=== PATIENT | male | born 1940 | race Caucasian/White ===

== ENCOUNTER 2016-07-25 22:59 | Emergency (ER) | payer OTHER ==
[~2016-07-25] VITALS: Ht 170.2 cm; Wt 62.0 kg
[~2016-07-25 22:59] MED LIST: 1-ME1LIQ PO; DONE10TA14 PO; NICO14DI18 TD; NICO21DI24 TD; NICO7DIS2 TD
[2016-07-25 23:43] VITALS: BP 126/68; PULSE 73; RESP 18; TEMP 97.9; O2SAT 97
[2016-07-26 01:15] VITALS: BP 143/80; PULSE 80; RESP 18; O2SAT 98
[2016-07-26 01:22] VITALS: BP 126/68; PULSE 73; RESP 18; TEMP 97.9; O2SAT 97
[2016-07-26 02:30] VITALS: BP 140/77; PULSE 85; RESP 18; O2SAT 99
[2016-07-26 03:21] LABS: BLOOD, URINE SMALL (NEG); GLUCOSE,URINE NEG (NEG); KETONE, URINE NEG (NEG); NITRITE,URINE NEG (NEG)
[2016-07-26 03:22] LABS: URINE COLOR STRAW (YELLW/STRAW)
[2016-07-26 03:25] LABS: BACTERIA, URINE MANY /hpf; COMMENT (UR) CATH-CULTURE IND; CULTURE IF INDICATED CATH CULTURE IND; SQUAMOUS EPITHELIAL CELL URINE 0-5 /hpf (0-5)
[2016-07-26] MEDS ORDERED: PHEN0.4T PO (03:39)
[2016-07-26] MEDS ORDERED: BACT800T5 PO (03:39)
--- NOTE | 2016-07-26 03:40 | PD ---
HPI Chief Complaint: Complaint Time Seen by Provider: 03:30 Travel History International Travel<30 days: No Contact w/Intl Traveler<30days: No Traveled to known affect area: No History of Present Illness HPI 75-year-old male presents to the emergency department with caregiver for urinary retention. Patient has history of metastatic adenocarcinoma of the lung. Patient also has history of dementia. No report of fever. No report of new shortness of breath chest pain abdominal pain flank pain. Patient recently had urinalysis performed but was not started on antibiotic and caregiver does not know the results as of 5 days ago. Estimated pain 10 over 10 in intensity. PFSH Past Medical History Narrative Medical Lung cancer dementia hypertension; no tobacco use at this time; nursing notes reviewed Cancer: Yes (lung ca) Cardiovascular Problems: Yes Diabetes: No Diminished Hearing: No Endocrine: No Genitourinary: Yes (enlarged prostate) Hepatitis: No Hiatal Hernia: No Hypertension: Yes Immune Disorder: No Musculoskeletal: No Neurologic: Yes (dementia) Psychiatric: No Reproductive: No Respiratory: Yes Immunizations Current: Yes Thyroid Disease: No Tetanus Vaccination: > 5 Years Influenza Vaccination: Yes Past Surgical History Abdominal Surgery: Yes (hernia 2011. 2013) AICD: No Cardiac Surgery: No Ear Surgery: No Endocrine Surgery: No Eye Surgery: Yes (mikhail 2000) Genitourinary Surgery: No Gynecologic Surgery: No Joint Replacement: No Oral Surgery: No Pacemaker: No Thoracic Surgery: No Tonsillectomy: Yes (APPROX 60 YEARS AGO) Other Surgery: Yes (OTHROSCOPY IN RIGHT KNEE IN 1987) Social History Alcohol Use: No Tobacco Use: No Substance Use: No Allergies-Medications (Allergen,Severity, Reaction): Coded Allergies: No Known Allergies (Verified , 07/26/16) Reported Meds & Prescriptions Reported Meds & Active Scripts Active Review of Systems Except as stated in HPI: all other systems reviewed are Neg Physical Exam Narrative GENERAL: Pleasant elderly male in no acute distress; urinary catheter in place SKIN: Warm and dry. HEAD: Normocephalic. EYES: No scleral icterus. No injection or drainage. NECK: Supple, trachea midline. No JVD or lymphadenopathy. CARDIOVASCULAR: Regular rate and rhythm without murmurs, gallops, or rubs. RESPIRATORY: Breath sounds equal bilaterally. No accessory muscle use. GASTROINTESTINAL: Abdomen soft, non-tender, nondistended. MUSCULOSKELETAL: No cyanosis, or edema. BACK: Nontender without obvious deformity. No CVA tenderness. Data Data Last Documented VS Vital Signs Date Time Temp Pulse Resp B/P Pulse Ox O2 Delivery O2 Flow Rate FiO2 07/26/16 02:30 85 18 140/77 99 Room Air 07/26/16 01:22 97.9 Orders Urinalysis - C+S If Indicated (07/26/16 03:08) Urine Culture (07/26/16 03:15) Labs Laboratory Tests Test 07/26/16 03:15 Urine Color STRAW Urine Turbidity CLOUDY Urine pH 6.0 Urine Specific [place] 1.004 Urine Protein NEG mg/dL Urine Glucose (UA) NEG mg/dL Urine Ketones NEG mg/dL Urine Occult Blood SMALL Urine Nitrite NEG Urine Bilirubin NEG Urine Leukocyte Esterase LARGE Urine RBC 4-9 /hpf Urine WBC 50-99 /hpf Urine Squamous Epithelial 0-5 /hpf Cells Urine Bacteria MANY /hpf Microscopic Urinalysis Comment CATH-CULTURE IND MDM Medical Decision Making Medical Screen Exam Complete: Yes Emergency Medical Condition: Yes Medical Record Reviewed: Yes Differential Diagnosis Urinary retention, UTI, renal insufficiency Narrative Course 75-year-old male with urinary retention presents with suprapubic pressure and pain; urinary catheter inserted and 1 L urine output with catheter clamped specimen sent for urinalysis Urinalysis is clearly abnormal with positive bacteria and white blood cells; culture indicated; patient given first dose of antibiotic Recommendation is to keep urinary catheter in place as risk for recurrent urinary retention is very high this is discussed in detail with the however the patient does have dementia and she is very concerned of traumatic injury due to the patient not understanding the need to leave the catheter alone and pulling it out causing urethral trauma. insisted removal of the urinary catheter and is encouraged to understand that he may have recurrent retention and well need to return to the emergency department for possible urinary catheter replacement. Catheter removed at this time. Patient administered first dose of antibiotic. Diagnosis Primary Impression: Urinary retention Additional Impression: UTI (urinary tract infection) Referrals: Primary Care Physician call for appointment Patient Instructions: General Instructions Additional Instructions: Administer antibiotic and complete course of antibiotic Administer acetaminophen/Tylenol as needed for fever 100.4F or greater Encourage increase fluid hydration Return to the emergency department for any concerns or change in condition Follow-up with managing/primary care provider Med/Other Pt SpecificInfo: Prescription(s) given Scripts Phenazopyridine (Pyridium)100 Mg [id number] Mg PO Q8H PRN (DYSURIA) #6 TAB Ref 0 Prov:Shereen Brink MD 07/26/16 Sulfamethoxazole-Trimethoprim (Bactrim DS)800-160 Mg Tab1 Tab PO BID #20 TAB Ref 0 Prov:Shereen Brink MD 07/26/16 Disposition: 01 DISCHARGE HOME Condition: Stable Shereen Brink MD Jul 26, 2016 03:40
[2016-07-26] MEDS ORDERED: SULFAMETHOXAZOLE-TRIMETHOPRIM DS 800-160 MG TAB PO ONE (03:45)
[2016-07-27] MEDS ORDERED: AMLO5TAB2 PO (22:38)
[2016-07-27] MEDS ORDERED: DONE10TA7 PO (22:38)
[2016-07-27] MEDS ORDERED: MEMA1TAB2 PO (22:40)
[2016-07-27] MEDS ORDERED: NAME10TA PO (22:40)
[2016-07-27] MEDS ORDERED: ALBU1.25 NEB (22:43)
[2016-07-27] MEDS ORDERED: ADVA115A INH (22:44)
[2016-07-27] MEDS ORDERED: VENTAER INH (22:44)
[2016-08-19] MEDS ORDERED: PROS5TAB PO (12:28)
[2016-08-27] MEDS ORDERED: BETH25 PO (14:19)
[2016-08-28] MEDS ORDERED: TAMS5CAP PO (09:07)
[2016-10-02] MEDS ORDERED: MACR100C2 PO (16:42)
[2016-10-29] MEDS ORDERED: PROS5TAB PO (12:09)
[2016-10-29] MEDS ORDERED: BETH25 PO (12:09)
== END 2016-07-26 04:03 | disposition home or self-care (01) ==
LOC: PHED 22:59
DX: N39.0 Urinary tract infection, site not specified (principal); R33.9 Retention of urine, unspecified; B96.89 Other specified bacterial agents as the cause of diseases classified elsewhere; I10 Essential (primary) hypertension
CPT/HCPCS: 51702; 81001; 87077; 87086; 87186

== ENCOUNTER 2016-07-27 20:55 | Inpatient (IN) | payer OTHER, MEDICARE ==
[~2016-07-27] VITALS: Ht 172.7 cm; Wt 60.6 kg
[~2016-07-27 20:55] MED LIST changes: -1-ME1LIQ PO; +BACT800T5 PO; -DONE10TA14 PO; -NICO14DI18 TD; -NICO21DI24 TD; -NICO7DIS2 TD; +PHEN0.4T PO
[2016-07-27 21:02] VITALS: BP 92/53; PULSE 77; RESP 20; TEMP 97.5; O2SAT 95
[2016-07-27 21:25] VITALS: BP 104/60; PULSE 70; RESP 20; TEMP 97.9; O2SAT 96
[2016-07-27 21:30] VITALS: O2SAT 96
[2016-07-27] MEDS ORDERED: SODIUM CHLOR 0.9% 1000 ML INJ 1,000 ML IV ONE (21:32)
[2016-07-27] MEDS: RESP: ALBUTEROL 2.5 MG/IPRATROPIUM 0.5 MG NEB (SCH) INH ×2 (21:57→21:58)
[2016-07-27 22:06] LABS: AUTOMATED NEUTROPHIL # 6.3 TH/MM3 (1.8-7.7); BASOPHIL % 0.5 % (0.0-2.0); EOSINOPHIL # 0.2 TH/MM3 (0-0.4); EOSINOPHIL % 2.1 % (0.0-4.0); HEMATOCRIT 39.2 % (39.0-51.0); HEMO FLAGS DIFF FINAL; LYMPH % 12.2 % (9.0-44.0); LYMPHOCYTE # 1.2 TH/MM3 (1.0-4.8); MEAN CELL VOLUME 89.2 FL (80.0-100.0); MEAN CORPUSCULAR HEMOGLOBIN 29.3 PG (27.0-34.0); MEAN CORPUSCULAR HGB CONC 32.9 % (32.0-36.0); MONO % 18.1 % (0.0-8.0); NEUT % 67.1 % (16.0-70.0); PLATELET COUNT 333 TH/MM3 (150-450); RED BLOOD COUNT 4.39 MIL/MM3 (4.50-5.90); RED CELL DISTRIBUTION WIDTH 13.4 % (11.6-17.2); WHITE BLOOD COUNT 9.4 TH/MM3 (4.0-11.0)
[2016-07-27 22:13] LABS: CHLORIDE 95 MEQ/L (98-107); POTASSIUM 4.1 MEQ/L (3.5-5.1); SODIUM (NA) 129 MEQ/L (136-145)
[2016-07-27 22:16] LABS: ANION GAP 9 MEQ/L (5-15); BICARBONATE 24.7 MEQ/L (21.0-32.0); BLOOD UREA NITROGEN 20 MG/DL (7-18)
[2016-07-27 22:18] LABS: APTT (PATIENT) 25.7 SEC (24.3-30.1); PROTHROMBIN TIME - PATIENT 10.9 SEC (9.8-11.6)
[2016-07-27 22:19] LABS: ALT (GPT) 24 U/L (12-78); AST (GOT) 15 U/L (15-37); GLOMERULAR FILTRATION RATE 84 ML/MIN (>89)
[2016-07-27 22:21] LABS: INDIRECT BILIRUBIN 0.1 MG/DL (0.0-0.8); TOTAL BILIRUBIN ADULT 0.2 MG/DL (0.2-1.0)
[2016-07-27 22:22] LABS: ALKALINE PHOSPHATASE 75 U/L (45-117)
[2016-07-27 22:30] VITALS: BP 123/63; PULSE 78; RESP 20; O2SAT 95
--- NOTE | 2016-07-27 22:30 | PD ---
HPI Chief Complaint: Respiratory Symptoms Time Seen by Provider: 21:26 Travel History International Travel<30 days: No Contact w/Intl Traveler<30days: No History of Present Illness HPI Patient is a 75 year old male who comes in because he has been feeling "unwell. " Patient has history of dementia and is unable to provide history. His states that he complained of pain to his belly earlier today. She also says that he said he was feeling short of breath and he used albuterol which seemed to have helped. He was here 2 days ago and diagnosed with a urinary tract infection. He has been taking Bactrim and Pyridium since then. His reports that he has been urinating fine until recently today he has said that he is unable to urinate. When you ask him, he says he has no complaints. PFSH Past Medical History Cancer: Yes (lung ca) Cardiovascular Problems: Yes Diabetes: No Diminished Hearing: No Endocrine: No Genitourinary: Yes (enlarged prostate) Hepatitis: No Hiatal Hernia: No Hypertension: Yes Immune Disorder: No Musculoskeletal: No Neurologic: Yes (dementia) Psychiatric: No Reproductive: No Respiratory: Yes Immunizations Current: Yes Thyroid Disease: No Past Surgical History Abdominal Surgery: Yes (hernia 2012. 2013) AICD: No Cardiac Surgery: No Ear Surgery: No Endocrine Surgery: No Eye Surgery: Yes (mikhail 2000) Genitourinary Surgery: No Gynecologic Surgery: No Joint Replacement: No Oral Surgery: No Pacemaker: No Thoracic Surgery: No Tonsillectomy: Yes (APPROX 60 YEARS AGO) Other Surgery: Yes (OTHROSCOPY IN RIGHT KNEE IN 1987) Social History Alcohol Use: No Tobacco Use: No Substance Use: No Allergies-Medications (Allergen,Severity, Reaction): Coded Allergies: No Known Allergies (Verified , 07/27/16) Reported Meds & Prescriptions Reported Meds & Active Scripts Active Pyridium (Phenazopyridine HCl) 100 Mg Tab 100 Mg PO Q8H PRN Bactrim DS (Sulfamethoxazole-Trimethoprim) 800-160 Mg Tab 1 Tab PO BID Reported Ventolin Hfa 18 GM Inh (Albuterol Sulfate) 90 Mcg/Act Aer 2 Puff INH Q4-6H PRN Advair Hfa 12 GM Inh (Fluticasone-Salmeterol 12 GM Inh) 115-21 Mcg/Act Aer 2 Puff INH DAILY Albuterol Neb (Albuterol Sulfate) 1.25 Mg/3 Ml Neb 1.25 Mg NEB Q6HR NEB PRN Namenda (Memantine) 10 Mg Tab 10 Mg PO BID Donepezil 10 Mg Tab 10 Mg PO HS Amlodipine (Amlodipine Besylate) 5 Mg Tab 5 Mg PO DAILY Review of Systems ROS Limitations: Other: (dementia) Physical Exam Narrative GENERAL: Awake and alert, in no acute distress. SKIN: Warm and dry. HEAD: Atraumatic. Normocephalic. EYES: Pupils equal and round. No scleral icterus. ENT: Mucous membranes pink and moist. NECK: Trachea midline. No JVD. CARDIOVASCULAR: Regular rate and rhythm. No murmur appreciated. RESPIRATORY: No accessory muscle use. Wheezing bilaterally. Breath sounds equal bilaterally. GASTROINTESTINAL: Abdomen soft, nondistended. Mild tenderness to suprapubic area. MUSCULOSKELETAL: No obvious deformities. No clubbing. No cyanosis. No edema. NEUROLOGICAL: Awake and alert. No obvious cranial nerve deficits. Motor grossly within normal limits. Normal speech. PSYCHIATRIC: Appropriate mood and affect; insight and judgment normal. Data Data Last Documented VS Vital Signs Date Time Temp Pulse Resp B/P Pulse Ox O2 Delivery O2 Flow Rate FiO2 07/27/16 21:40 20 96 Room Air 07/27/16 21:25 97.9 70 104/60 Orders Electrocardiogram (07/27/16 21:32) Complete Blood Count With Diff (07/27/16 21:32) Prothrombin Time / Inr (Pt) (07/27/16 21:32) Act Partial Throm Time (Ptt) (07/27/16 21:32) Lactic Acid Sepsis Protocol (07/27/16 21:32) Troponin I (07/27/16 21:32) Urinalysis - C+S If Indicated (07/27/16 21:32) Chest, Single Ap (07/27/16 21:32) Blood Glucose (07/27/16 21:32) Ecg Monitoring (07/27/16 21:32) Iv Access Insert/Monitor (07/27/16 21:32) Oximetry (07/27/16 21:32) Oxygen Administration (07/27/16 21:32) Sodium Chlor 0.9% 1000 Ml Inj (Ns 1000 M (07/27/16 21:32) Hepatic Functional Panel (07/27/16 21:32) Basic Metabolic Panel (Bmp) (07/27/16 21:32) Albuterol-Ipratropium Neb (Duoneb Neb) (07/27/16 22:00) Urinary Catheter Insert/Apply (07/27/16 22:01) Urine Culture (07/27/16 21:55) Ceftriaxone Inj (Rocephin Inj) (07/27/16 22:45) Admit Order (Ed Use Only) (07/27/16 ) Ceftriaxone Inj (Rocephin Inj) (07/28/16 23:00) Admit To Inpatient (07/27/16 ) Vital Signs (Adult) Q4H (07/27/16 23:53) Activity Oob With Assistance (07/27/16 23:53) Intake + Output KRUNAL.QSHIFT (07/27/16 23:53) Diet Heart Healthy (07/28/16 Breakfast) Sodium Chlor 0.9% 1000 Ml Inj (Ns 1000 M (07/27/16 23:53) Sodium Chloride 0.9% Flush (Ns Flush) (07/28/16 00:00) Sodium Chloride 0.9% Flush (Ns Flush) (07/28/16 09:00) Ondansetron Inj (Zofran Inj) (07/28/16 00:00) Bisacodyl Supp (Dulcolax Supp) (07/28/16 00:00) Comprehensive Metabolic Panel (07/28/16 06:00) Complete Blood Count With Diff (07/28/16 06:00) Scd Bilateral/Knee High KRUNAL.BID (07/27/16 23:53) Bran Bilateral/Knee High KRUNAL.QSHIFT (07/27/16 23:53) Acetaminophen (Tylenol) (07/28/16 00:00) Acetamin-Hydrocod 325-5 Mg ([place] 5-325 (07/28/16 00:00) Morphine Inj (Morphine Inj) (07/28/16 00:00) Inpatient Certification (07/27/16 ) Albuterol Neb (Albuterol Neb) (07/28/16 00:00) Donepezil (Aricept) (07/28/16 21:00) Memantine (Namenda) (07/28/16 09:00) Phenazopyridine (Pyridium) (07/28/16 00:00) (Nf) Fluticasone-Salmeterol 12 Gm Inh (A (07/28/16 09:00) Labs Laboratory Tests Test 07/27/16 21:55 White Blood Count 9.4 TH/MM3 Red Blood Count 4.39 MIL/MM3 Hemoglobin 12.9 GM/DL Hematocrit 39.2 % Mean Corpuscular Volume 89.2 FL Mean Corpuscular Hemoglobin 29.3 PG Mean Corpuscular Hemoglobin 32.9 % Concent Red Cell Distribution Width 13.4 % Platelet Count 333 TH/MM3 Mean Platelet Volume 6.8 FL Neutrophils (%) (Auto) 67.1 % Lymphocytes (%) (Auto) 12.2 % Monocytes (%) (Auto) 18.1 % Eosinophils (%) (Auto) 2.1 % Basophils (%) (Auto) 0.5 % Neutrophils # (Auto) 6.3 TH/MM3 Lymphocytes # (Auto) 1.2 TH/MM3 Monocytes # (Auto) 1.7 TH/MM3 Eosinophils # (Auto) 0.2 TH/MM3 Basophils # (Auto) 0.0 TH/MM3 CBC Comment DIFF FINAL Differential Comment Prothrombin Time 10.9 SEC Prothromb Time International 1.0 RATIO Ratio Activated Partial 25.7 SEC Thromboplast Time Urine Color ORANGE Urine Turbidity CLEAR Urine pH 5.0 Urine Specific [place] 1.017 Urine Protein 30 mg/dL Urine Glucose (UA) 100 mg/dL Urine Ketones NEG mg/dL Urine Occult Blood LARGE Urine Nitrite POS Urine Bilirubin NEG Urine Leukocyte Esterase TRACE Urine RBC 20-24 /hpf Urine WBC 3-5 /hpf Urine Squamous Epithelial 0-5 /hpf Cells Urine Bacteria RARE /hpf Microscopic Urinalysis Comment CATH-CULTURE IND Sodium Level 129 MEQ/L Potassium Level 4.1 MEQ/L Chloride Level 95 MEQ/L Carbon Dioxide Level 24.7 MEQ/L Anion Gap 9 MEQ/L Blood Urea Nitrogen 20 MG/DL Creatinine 0.88 MG/DL Estimat Glomerular Filtration 84 ML/MIN Rate Random Glucose 109 MG/DL Lactic Acid Level 1.3 mmol/L Calcium Level 8.1 MG/DL Total Bilirubin 0.2 MG/DL Direct Bilirubin 0.1 MG/DL Indirect Bilirubin 0.1 MG/DL Aspartate Amino Transf 15 U/L (AST/SGOT) Alanine Aminotransferase 24 U/L (ALT/SGPT) Alkaline Phosphatase 75 U/L Troponin I LESS THAN 0.02 NG/ML Total Protein 6.8 GM/DL Albumin 3.1 GM/DL MDM Medical Decision Making Medical Screen Exam Complete: Yes Emergency Medical Condition: Yes Medical Record Reviewed: Yes Interpretation(s) ECG shows normal sinus rhythm at 75, no ST elevation or depression, normal intervals. Differential Diagnosis UTI versus pneumonia versus COPD Narrative Course Patient is a 75-year-old male comes in because he is "feeling unwell." Patient has been trying to urinate, but is unable to. Selby catheter inserted with about 300 cc of urine that came out. Urine sent for urinalysis. IV established , labs sent. Labs show a sodium of 129. Urinalysis is positive for UTI. Patient has been taking Bactrim, but it is not working. Patient given IV fluids as well as Rocephin. He will be admitted for failed outpatient therapy. Diagnosis Primary Impression: UTI (urinary tract infection) Qualified Code: N30.00 - Acute cystitis without hematuria Additional Impression: Urinary retention Admitting Information Admitting Physician Requests: Admit Condition: Stable Savanah Go MD Jul 27, 2016 22:30
[2016-07-27 22:32] LABS: BLOOD, URINE LARGE (NEG); GLUCOSE,URINE 100 mg/dL (NEG); KETONE, URINE NEG (NEG)
[2016-07-27 22:36] LABS: NITRITE,URINE POS (NEG); URINE COLOR ORANGE (YELLW/STRAW)
[2016-07-27 22:37] LABS: BACTERIA, URINE RARE /hpf; COMMENT (UR) CATH-CULTURE IND; CULTURE IF INDICATED CATH CULTURE IND; SQUAMOUS EPITHELIAL CELL URINE 0-5 /hpf (0-5)
[2016-07-27] MEDS ORDERED: DONE10TA7 PO (22:38)
[2016-07-27] MEDS ORDERED: AMLO5TAB2 PO (22:38)
[2016-07-27] MEDS ORDERED: MEMA1TAB2 PO (22:40)
[2016-07-27] MEDS ORDERED: NAME10TA PO (22:40)
[2016-07-27] MEDS ORDERED: ALBU1.25 NEB (22:43)
[2016-07-27] MEDS ORDERED: ADVA115A INH (22:44)
[2016-07-27] MEDS ORDERED: VENTAER INH (22:44)
[2016-07-27] MEDS ORDERED: cefTRIAXone INJ 1,000 MG in SODIUM CHLORIDE 0.9% INJ 100 ML IV ONE (22:45)
--- NOTE | 2016-07-27 22:49 | RADHPO ---
EXAM DATE/TIME: 07/27/2016 22:06 [facility] COMPARISON: CHEST SINGLE AP, February 08, 2015, 11:13. CT NEEDLE BIOPSY LUNG, RIGHT, February 07, 2015, 9:11. INDICATIONS : Shortness of breath. MEDICAL HISTORY : Hypertension. SURGICAL HISTORY : None. ENCOUNTER: Initial ACUITY: 1 day PAIN SCORE: 0/10 LOCATION: Bilateral chest FINDINGS: Previous right chest tube has been removed. There is partial atelectasis of the right lung. Left lung unremarkable. Tortuous aorta. No significant effusion on the left. Trace right pleural fluid. CONCLUSION: 1. Removal of right chest tube without significant pneumothorax. Partial atelectasis right upper lobe . Apical pleural thickening on the right with trace right pleural fluid. Hitesh Cool MD on July 27, 2016 at 22:47 Board Certified Radiologist. This report was verified electronically.
[2016-07-27 23:00] VITALS: BP 119/52; PULSE 78; RESP 20; O2SAT 96
[2016-07-27 23:30] VITALS: BP 121/65; PULSE 80; RESP 20; O2SAT 95
[2016-07-28] VITALS (9 sets, daily range): BP systolic 104–146; BP diastolic 51–76; PULSE 69–96; RESP 18–20; TEMP 96.4–98.2; O2SAT 95–96
[2016-07-28] MEDS ORDERED: PHENAZOPYRIDINE HCL 100 MG TAB PO PRN
[2016-07-28] MEDS ORDERED: SODIUM CHLORIDE 0.9% FLUSH 10 ML FLUSH IV FLUSH PRN
[2016-07-28] MEDS ORDERED: ONDANSETRON HCL 4 MG/2 ML VIAL IVP PRN
[2016-07-28] MEDS ORDERED: BISACODYL 10 MG SUPP PR PRN
[2016-07-28] MEDS ORDERED: ACETAMINOPHEN 325 MG TAB PO PRN
[2016-07-28] MEDS: SODIUM CHLOR 0.9% 1000 ML INJ 1,000 ML IV SCH ×3 (00:41→16:10)
[2016-07-28] MEDS: RESP: ALBUTEROL 1.25 MG/3 ML NEB (PRN) NEB ×3 (04:05→14:03)
[2016-07-28] MEDS: guaiFENesin SOLUTION 200 MG/10 ML CUP PO PRN (05:49)
[2016-07-28 05:54] LABS: AUTOMATED NEUTROPHIL # 6.3 TH/MM3 (1.8-7.7); BASOPHIL % 0.5 % (0.0-2.0); EOSINOPHIL # 0.3 TH/MM3 (0-0.4); EOSINOPHIL % 3.3 % (0.0-4.0); HEMATOCRIT 36.6 % (39.0-51.0); HEMO FLAGS DIFF FINAL; LYMPHOCYTE # 0.7 TH/MM3 (1.0-4.8); MEAN CELL VOLUME 89.1 FL (80.0-100.0); MEAN CORPUSCULAR HEMOGLOBIN 29.3 PG (27.0-34.0); MEAN CORPUSCULAR HGB CONC 32.9 % (32.0-36.0); MONO % 17.8 % (0.0-8.0); NEUT % 70.4 % (16.0-70.0); PLATELET COUNT 319 TH/MM3 (150-450); RED BLOOD COUNT 4.11 MIL/MM3 (4.50-5.90); RED CELL DISTRIBUTION WIDTH 13.9 % (11.6-17.2); WHITE BLOOD COUNT 8.9 TH/MM3 (4.0-11.0)
[2016-07-28 05:59] LABS: CHLORIDE 102 MEQ/L (98-107); SODIUM (NA) 135 MEQ/L (136-145)
[2016-07-28 06:03] LABS: ANION GAP 7 MEQ/L (5-15); BICARBONATE 25.8 MEQ/L (21.0-32.0); BLOOD UREA NITROGEN 16 MG/DL (7-18)
[2016-07-28 06:06] LABS: ALT (GPT) 20 U/L (12-78); AST (GOT) 12 U/L (15-37); GLOMERULAR FILTRATION RATE 104 ML/MIN (>89)
[2016-07-28 06:08] LABS: TOTAL BILIRUBIN ADULT 0.3 MG/DL (0.2-1.0)
[2016-07-28 06:09] LABS: ALKALINE PHOSPHATASE 66 U/L (45-117)
[2016-07-28] MEDS: SODIUM CHLORIDE 0.9% FLUSH 10 ML FLUSH IV FLUSH SCH ×2 (08:53→20:01)
[2016-07-28] MEDS ORDERED: [UNRECOGNIZED DRUG - OTHER] INH SCH (09:00)
[2016-07-28] MEDS ORDERED: SALMETEROL INH SCH (09:00)
[2016-07-28] MEDS ORDERED: FLUTICASONE PROPIONATE INH SCH (09:00)
--- NOTE | 2016-07-28 09:40 | HHI.HP ---
HPI Service [facility] Hospitalists Primary Care Physician Marisela Reddy MD Admission Diagnosis UTI, failed outpatient therapy Diagnoses: Chief Complaint: Dysuria Weakness Dementia Travel History International Travel<30 Days: No Contact w/Intl Traveler <30 Da: No Traveled to Known Affected Are: No History of Present Illness This is a 75-year-old male with severe dementia who presented to [facility] ED with complaints of weakness and abdominal pain who was treated in the ED 3 days ago for UTI and urinary retention. Patient is unable to give accurate history and there is no family at the bedside, therefore the history is obtained from review of the medical record. Purportedly, patient began to complain of abdominal pain yesterday with some associated shortness of breath that improved after receiving an albuterol treatment. He also has been more weak in comparison to his baseline. As stated above, patient was seen in the ED 3 days ago, diagnosed with a urinary tract infection and urinary retention. A ordonez was placed and he was prescribed Bactrim and Pyridium. Patient's reports the patient had been urinating without any difficulty until 07/26/16 when he presented in urinary retention. It was recommended the patient keep the Ordonez catheter in at the time of his discharge however due to his dementia the patient's insisted it be removed. He has been unable to void since. Today in the ED, ordonez catheter was replaced. UA was highly suggestive of urinary tract infection with large blood, positive nitrites, trace leukocytes and 20-24 red blood cells. He is afebrile and his white count is within normal limits. He was also noted to have significant hyponatremia with a sodium level of 129. Creatinine function appears normal with a level of 0.88. BUN was slightly elevated at 20. 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, previously on surveillance Past Surgical History Back surgery 3 Hernia surgery 2 Knee arthroscopy Reported Medications Pyridium (Phenazopyridine HCl) 100 Mg Tab 100 Mg PO Q8H PRN Bactrim DS (Sulfamethoxazole-Trimethoprim) 800-160 Mg Tab 1 Tab PO BID Ventolin Hfa 18 GM Inh (Albuterol Sulfate) 90 Mcg/Act Aer 2 Puff INH Q4-6H PRN Advair Hfa 12 GM Inh (Fluticasone-Salmeterol 12 GM Inh) 115-21 Mcg/Act Aer 2 Puff INH DAILY Albuterol Neb (Albuterol Sulfate) 1.25 Mg/3 Ml Neb 1.25 Mg NEB Q6HR NEB PRN Namenda (Memantine) 10 Mg Tab 10 Mg PO BID Donepezil 10 Mg Tab 10 Mg PO HS Amlodipine (Amlodipine Besylate) 5 Mg Tab 5 Mg PO DAILY Allergies: Coded Allergies: No Known Allergies (Verified , 07/27/16) Active Ordered Medications Current Medications Medications (Trade) Dose Ordered Sig/Alisa Route Start Time Stop Time Status Last Admin Ceftriaxone Sodium 1000 mg/ Sodium Chloride 100 ml @ 200 mls/hr Q24H IV 07/28/16 23:00 (NS 1000 ml Inj) 1,000 ml @ 100 mls/hr Q10H IV 07/27/16 23:53 07/28/16 00:41 (NS Flush) 2 ml UNSCH PRN IV FLUSH 07/28/16 00:00 (NS Flush) 2 ml BID IV FLUSH 07/28/16 09:00 (Zofran Inj) 4 mg Q6H PRN IVP 07/28/16 00:00 (Dulcolax Supp) 10 mg DAILY PRN [place] 07/28/16 00:00 (Tylenol) 650 mg Q6H PRN PO 07/28/16 00:00 ([place] 5-325 Mg) 1 tab Q4H PRN PO 07/28/16 00:00 (Morphine Inj) 2 mg Q3H PRN IV 07/28/16 00:00 (Aricept) 10 mg HS PO 07/28/16 21:00 (Namenda) 10 mg BID PO 07/28/16 09:00 (Pyridium) 100 mg Q8H PRN PO 07/28/16 00:00 Patient Own Medication PT OWN MED: ADVAIR HFA O... DAILY INH 07/28/16 09:00 Hold (Robitussin Liq) 200 mg Q4H PRN PO 07/28/16 05:30 07/28/16 05:49 Family History - Dad of [place] in his 60s. - Mother of CHF in her 80s - Sister from a brain tumor in her 40s - Brother had lung cancer in his 70s. Social History - 58 years of smoking 1ppd but quit over a year ago. - Used to drink heavy. Does not drink anymore. Denies any illicit drugs. Physical Exam Vital Signs Vital Signs Date Time Temp Pulse Resp B/P Pulse Ox O2 Delivery O2 Flow Rate FiO2 07/28/16 07:18 98.2 74 18 146/76 96 Room Air 07/28/16 07:18 96 Room Air 07/28/16 07:18 96 Room Air 07/28/16 07:18 96 Room Air 07/28/16 05:50 98.1 69 20 139/68 95 Room Air 07/28/16 03:30 89 20 112/57 95 Room Air 07/28/16 03:00 20 95 Room Air 07/28/16 01:00 97.7 73 18 105/51 96 Room Air 07/28/16 00:00 72 18 105/56 95 Room Air 07/27/16 23:30 80 20 121/65 95 Room Air 07/27/16 23:00 78 20 119/52 96 Room Air 07/27/16 22:30 78 20 123/63 95 Room Air 07/27/16 21:40 20 96 Room Air 07/27/16 21:30 96 Room Air 07/27/16 21:30 96 Room Air 07/27/16 21:25 97.9 70 20 104/60 96 07/27/16 21:02 97.5 77 20 92/53 95 Physical Exam GENERAL: This is a well-nourished, well-developed patient, in no apparent distress. Demented. SKIN: No rashes, ecchymoses or lesions. Warm and dry. HEAD: Atraumatic. Normocephalic. No temporal or scalp tenderness. EYES: Pupils equal round and reactive. Extraocular motions intact. No scleral icterus. No injection or drainage. ENT: Nose without bleeding, purulent drainage or septal hematoma. Throat without erythema, tonsillar hypertrophy or exudate. Uvula midline. Airway patent. NECK: Trachea midline. No lymphadenopathy. Supple, nontender, no meningeal signs. CARDIOVASCULAR: Regular rate and rhythm without murmurs, gallops, or rubs. RESPIRATORY: Clear to auscultation. Breath sounds equal bilaterally. No wheezes , rales, or rhonchi. GASTROINTESTINAL: Abdomen soft, non-tender, nondistended. No hepato-splenomegaly , or palpable masses. No guarding. GENITOURINARY: Ordonez in place with clear yellow urine in the bag. MUSCULOSKELETAL: Extremities without clubbing, cyanosis, or edema. No joint tenderness, effusion, or edema noted. No calf tenderness. Positive for tenderness elicited to palpation over the right anterior lateral thigh. No evidence of infection or inflammation. Skin overlying this intact without any abnormalities. No signs of ecchymosis or hematoma. NEUROLOGICAL: Awake and alert. Patient is demented and is not oriented to person place or time. He is able to move all 4 extremities. No focal neurologic deficits appreciated. Laboratory Laboratory Tests Test 07/27/16 07/28/16 21:55 05:47 White Blood Count 9.4 8.9 Red Blood Count 4.39 4.11 Hemoglobin 12.9 12.0 Hematocrit 39.2 36.6 Mean Corpuscular Volume 89.2 89.1 Mean Corpuscular Hemoglobin 29.3 29.3 Mean Corpuscular Hemoglobin 32.9 32.9 Concent Red Cell Distribution Width 13.4 13.9 Platelet Count 333 319 Mean Platelet Volume 6.8 6.7 Neutrophils (%) (Auto) 67.1 70.4 Lymphocytes (%) (Auto) 12.2 8.0 Monocytes (%) (Auto) 18.1 17.8 Eosinophils (%) (Auto) 2.1 3.3 Basophils (%) (Auto) 0.5 0.5 Neutrophils # (Auto) 6.3 6.3 Lymphocytes # (Auto) 1.2 0.7 Monocytes # (Auto) 1.7 1.6 Eosinophils # (Auto) 0.2 0.3 Basophils # (Auto) 0.0 0.0 CBC Comment DIFF FINAL DIFF FINAL Differential Comment Prothrombin Time 10.9 Prothromb Time International 1.0 Ratio Activated Partial 25.7 Thromboplast Time Urine Color ORANGE Urine Turbidity CLEAR Urine pH 5.0 Urine Specific [place] 1.017 Urine Protein 30 Urine Glucose (UA) 100 Urine Ketones NEG Urine Occult Blood LARGE Urine Nitrite POS Urine Bilirubin NEG Urine Leukocyte Esterase TRACE Urine RBC 20-24 Urine WBC 3-5 Urine Squamous Epithelial 0-5 Cells Urine Bacteria RARE Microscopic Urinalysis Comment CATH-CULTURE IND Sodium Level 129 135 Potassium Level 4.1 4.0 Chloride Level 95 102 Carbon Dioxide Level 24.7 25.8 Anion Gap 9 7 Blood Urea Nitrogen 20 16 Creatinine 0.88 0.73 Estimat Glomerular Filtration 84 104 Rate Random Glucose 109 87 Lactic Acid Level 1.3 Calcium Level 8.1 7.7 Total Bilirubin 0.2 0.3 Direct Bilirubin 0.1 Indirect Bilirubin 0.1 Aspartate Amino Transf 15 12 (AST/SGOT) Alanine Aminotransferase 24 20 (ALT/SGPT) Alkaline Phosphatase 75 66 Troponin I LESS THAN 0.02 Total Protein 6.8 6.2 Albumin 3.1 2.9 Date/Time Procedure Status Source Growth 07/27/16 21:55 Urine Culture Received Urine Catheterized Urine Pending Result Diagram: 07/28/16 0547 07/28/16 0547 Imaging Last 48 hours Impressions Chest X-Ray 07/27/162131 Signed Impressions: Service Date/Time: Wednesday, July 27, 2016 22:06 - CONCLUSION: 1. Removal of right chest tube without significant pneumothorax. Partial atelectasis right upper lobe. Apical pleural thickening on the right with trace right pleural fluid. Hitesh Cool MD Assessment and Plan Assessment and Plan 75-year-old male with severe dementia who presented to [facility] ED with complaints of weakness and abdominal pain who was treated in the ED 2 days ago for urinary tract infection and urinary retention. UTI, failed outpatient treatment - Patient admitted to observation - IV ceftriaxone - IV antiemetics and pain medication prn - Pyridium prn - Follow up on urine culture results Urinary retention - Continue Ordonez - Begin Flomax 0.4 mg daily Hyponatremia - likely due to fluid overload from urinary retention - much improved, near normal value - decrease IVF - am lab to monitor Dementia - resume Aricept - fall precautions COPD - Duonebs prn - resume home bronchodilators - Supplemental oxygen as needed DVT prophylaxis - Heparin sq - SCD/UMER hose Written by Tish Tran PA-C acting as scribe for Dr. Mirza on 07/28/16 at 09:40. All or portions of this note were transcribed by luiz Tran PA-C. I, Dr. Ovidio Mirza personally performed the history, physical exam, and medical decision making; and confirmed the accuracy of the information in the transcribed note. Authenticated by Dr. Ovidio Mirza on 07/28/16 at 15:40. Physician Certification 2 Midnight Certification Type: Admission for Inpatient Services Order for Inpatient Services The services are ordered in accordance with Medicare regulations or non- Medicare payer requirements, as applicable. In the case of services not specified as inpatient-only, they are appropriately provided as inpatient services in accordance with the 2-midnight benchmark. Estimated LOS (days): 2 days is the estimated time the patient will need to remain in the hospital, assuming treatment plan goals are met and no additional complications. Post-Hospital Plan: Not yet determined Tish Tran Jul 28, 2016 09:40 Ovidio Mirza MD Jul 28, 2016 15:40
[2016-07-28] MEDS: MEMANTINE HCL 10 MG TAB PO SCH ×2 (12:04→20:03)
[2016-07-28] MEDS: TAMSULOSIN HCL 0.4 MG CAP PO SCH (12:04)
[2016-07-28] MEDS: ACETAMINOPHEN/HYDROcodone 325 MG/5 MG TAB PO PRN (12:06)
[2016-07-28] MEDS: MORPHINE SULFATE 4 MG/ML INJ IV PRN ×2 (13:25→20:00)
--- NOTE | 2016-07-28 14:51 | EKG ---
Date Performed: 07/27/2016 Time Performed: 21:44:08 PTAGE: 75 years EKG: Sinus rhythm Normal ECG NO PREVIOUS TRACING DOCTOR: Nato Main Interpretating Date/Time 07/28/2016 14:47:36
[2016-07-28] MEDS: DONEPEZIL HCL 5 MG TAB PO SCH (20:03)
[2016-07-28] MEDS: cefTRIAXone INJ 1,000 MG in SODIUM CHLORIDE 0.9% INJ 100 ML IV SCH (23:34)
[2016-07-29] VITALS: BP 100/64; PULSE 70; RESP 18; TEMP 96; O2SAT 96
[2016-07-29] MEDS: guaiFENesin SOLUTION 200 MG/10 ML CUP PO PRN ×4 (05:10→23:58)
[2016-07-29 08:00] VITALS: BP 122/71; PULSE 78; RESP 20; TEMP 98.3; O2SAT 93
--- NOTE | 2016-07-29 08:35 | MB ---
cc: SHERRIE DAO DATE OF CONSULTATION: 07/29/2016 HISTORY OF PRESENT ILLNESS Mr. Garcia is a 75-year-old male with history of dementia, who has a history of urinary retention. He was seen earlier in the ER last week and a Selby catheter needed to be placed due to urinary retention and was treated for urinary tract infection. Apparently at some point the catheter was removed and he was unable to urinate and was re-admitted last night. Furthermore, the patient had removed his Selby on his own. At the bedside this morning he was uncomfortable and his bladder was distended. A Selby catheter was placed by myself and over a liter of urine has drained out. It appears clear at present and his creatinine on admission was 0.88. Due to the fact that the patient has dementia, I am unable to get a full history and physical from him and this will be taken primarily from the chart. PAST MEDICAL HISTORY His medical problems include: 1. Dementia. 2. Hypertension. 3. COPD. 4. Right lung cancer. PAST SURGICAL HISTORY Past surgical history is notable for: 1. Knee surgery. 2. Hernia surgery. 3. Back surgery. MEDICATION For medications, please refer to the chart. ALLERGIES NO KNOWN DRUG ALLERGIES. FAMILY HISTORY Family history is notable for heart disease. SOCIAL HISTORY Noted for smoking and drinking. REVIEW OF SYSTEMS Unable to obtain. PHYSICAL EXAMINATION VITAL SIGNS: Temperature is 96, heart rate 70, respiratory rate 18, 100/64. GENERAL: He is well-developed, well-nourished 75-year-old male, not oriented to place. HEENT/NECK: Normocephalic, atraumatic. Pupils equal, round, reactive to light. Extraocular movements intact. Neck is supple. Nose: No bleeding is noted. Trachea midline. No JVD. HEART: Rate is regular rate and rhythm. LUNGS: Clear bilaterally. ABDOMEN: Abdomen is distended over the suprapubic region with some tenderness. : Uncircumcised phallus. Testes are descended. EXTREMITIES: Show no cyanosis, clubbing or edema. Patient is currently in restraints. Selby catheter placed at the bedside without difficulty and over 1000 ccs of clear urine were drained. 20 ccs of sterile water was placed in the Selby catheter. LABORATORY FINDINGS White count 8.9, hemoglobin 12.0, hematocrit 36.6, platelet 319, sodium 135, potassium 4.0, chloride 102, CO2 25.8, BUN 16, creatinine 0.73, glucose of 87. Urinalysis shows 3-5 white cells, 20-24 red cells. ASSESSMENT This is a 75-year-old male with urinary retention. Will continue Flomax but will increase the dose from 0.8 mg once a day to twice a day. Will start Urecholine 25 mg p.o. t.i.d. Will need to give a void trial in the future. If unable to avoid may need a TURP. Thank you for the consult and allowing me to participate in the care of this patient. Sherrie TSANG /8:06 AM /8:21 AM
[2016-07-29] MEDS: SODIUM CHLORIDE 0.9% FLUSH 10 ML FLUSH IV FLUSH SCH ×2 (09:00→20:20)
[2016-07-29] MEDS: RESP: ALBUTEROL 1.25 MG/3 ML NEB (PRN) NEB (09:40)
[2016-07-29] MEDS: TAMSULOSIN HCL 0.4 MG CAP PO SCH ×2 (09:40→21:38)
[2016-07-29] MEDS: MEMANTINE HCL 10 MG TAB PO SCH ×2 (09:40→21:38)
--- NOTE | 2016-07-29 11:16 | HHI.PR ---
Subjective Remarks Follow-up on patient with severe dementia, urinary retention and UTI. Discussed with nursing staff this morning events overnight. Patient became extremely confused and pulled out his Selby catheter. Urology consulted by glue bone drier. Patient placed in restraints. Currently, the patient is calm and pleasantly confused. His is at the bedside. Selby catheter has been replaced by urology. Patient's is requesting a bedside sitter. She states that he is much more confused than his normal baseline. Objective Vitals Vital Signs Date Time Temp Pulse Resp B/P Pulse Ox O2 Delivery O2 Flow Rate FiO2 07/29/16 08:00 98.3 78 20 122/71 93 07/29/16 00:00 96.0 70 18 100/64 96 07/28/16 20:00 96.4 87 18 104/71 96 07/28/16 16:00 98.0 90 18 136/68 95 07/28/16 16:00 98.0 90 18 136/68 95 07/28/16 12:00 98.1 90 18 140/68 95 I/O 07/28/16 07/28/16 07/28/16 07/29/16 07/29/16 07/29/16 07:00 15:00 23:00 07:00 15:00 23:00 Intake Total 1500 ml 939 ml 1167 ml 643 ml Output Total 2175 ml 1500 ml 1201 ml Balance -675 ml -561 ml -34 ml 643 ml Intake Oral 400 ml 220 ml 720 ml 242 ml IV Total 1100 ml 719 ml 447 ml 401 ml Output Urine Total 2175 ml 1500 ml 1200 ml Stool Total 1 ml # Voids 0 4 # Bowel Movements 2 3 Result Diagram: 07/28/16 0547 07/28/16 0547 Objective Remarks GENERAL: This is a well-nourished, well-developed patient, in no apparent distress. Lying in hospital in restraints. at bedside. SKIN: Warm and dry. HEAD: Atraumatic. Normocephalic. CARDIOVASCULAR: Regular rate and rhythm without murmurs, gallops, or rubs. RESPIRATORY: Clear to auscultation. Breath sounds equal bilaterally. No wheezes , rales, or rhonchi. GASTROINTESTINAL: Abdomen soft, non-tender, nondistended. No hepato-splenomegaly , or palpable masses. No guarding. GENITOURINARY: Selby in place with clear yellow urine in the bag. MUSCULOSKELETAL: Extremities without clubbing, cyanosis, or edema. No joint tenderness, effusion, or edema noted. No calf tenderness. Positive for tenderness elicited to palpation over the right anterior lateral thigh. No evidence of infection or inflammation. Skin overlying this intact without any abnormalities. No signs of ecchymosis or hematoma. NEUROLOGICAL: Awake and alert. Patient has dementia and is not oriented to person place or time. He is able to move all 4 extremities. No focal neurologic deficits appreciated. Medications and IVs Current Medications Medications (Trade) Dose Ordered Sig/Alisa Route Start Time Stop Time Status Last Admin Ceftriaxone Sodium 1000 mg/ Sodium Chloride 100 ml @ 200 mls/hr Q24H IV 07/28/16 23:00 07/28/16 23:34 (NS 1000 ml Inj) 1,000 ml @ 42 mls/hr [id number] IV 07/27/16 23:53 07/28/16 16:10 (NS Flush) 2 ml UNSCH PRN IV FLUSH 07/28/16 00:00 (NS Flush) 2 ml BID IV FLUSH 07/28/16 09:00 07/28/16 20:01 (Zofran Inj) 4 mg Q6H PRN IVP 07/28/16 00:00 (Dulcolax Supp) [address] 07/28/16 00:00 (Tylenol) 650 mg Q6H PRN PO 07/28/16 00:00 ([place] 5-325 Mg) 1 tab Q4H PRN PO 07/28/16 00:00 07/28/16 12:06 (Morphine Inj) 2 mg Q3H PRN IV 07/28/16 00:00 07/28/16 20:00 (Aricept) 10 mg HS PO 07/28/16 21:00 07/28/16 20:03 (Namenda) 10 mg BID PO 07/28/16 09:00 07/29/16 09:40 (Pyridium) 100 mg Q8H PRN PO 07/28/16 00:00 Patient Own Medication PT OWN MED: ADVAIR HFA O... DAILY INH 07/28/16 09:00 Hold (Robitussin Liq) 200 mg Q4H PRN PO 07/28/16 05:30 07/29/16 12:30 (Flomax) 0.4 mg DAILY PO 07/28/16 11:00 07/29/16 09:40 Urinary Catheter: Yes Selby insert reason: Obstruction/Retention Date of Insertion: Jul 29, 2016 A/P Assessment and Plan 75-year-old male with severe dementia who presented to [facility] ED with complaints of weakness and abdominal pain who was treated in the ED 2 days ago for urinary tract infection and urinary retention. UTI, failed outpatient treatment - UCX shows no growth in 48hrs - continue IV Rocephin due to UA highly suggestive of UTI and suspected to be contributing to his worsening dementia Urinary retention - events of last night noted, patient with traumatic Selby removal. Urology consulted and Selby replaced. Urology plans to increase dose of Flomax and began Urecholine 25mg TID. - Continue Selby Hyponatremia - likely due to fluid overload from urinary retention - much improved, near normal value - am lab to monitor Dementia with increased confusion secondary to hospitalization and UTI - continue Aricept - Bedside sitter - fall precautions COPD - Duonebs prn - resume home bronchodilators - Supplemental oxygen as needed DVT prophylaxis - Heparin sq - SCD/UMER hose Written by Tish Tran PA-C acting as scribe for Dr. Mirza on 07/29/16 at 11:00. All or portions of this note were transcribed by scribe Tish Tran PA-C. I, Dr. Ovidio Mirza personally performed the history, physical exam, and medical decision making; and confirmed the accuracy of the information in the transcribed note. Authenticated by Dr. Ovidio Mirza on 07/30/16 at 07:46. Tish Tran Jul 29, 2016 11:16 Ovidio Mirza MD Jul 30, 2016 07:47
[2016-07-29 12:00] VITALS: BP_SYST 115; BP_SYST 124; BP_DIAS 82; BP_DIAS 88; PULSE 72; PULSE 88; RESP 16; RESP 20; TEMP 97.6; TEMP 98.1; O2SAT 95; O2SAT 96
[2016-07-29 15:50] VITALS: BP 116/70; PULSE 77; RESP 20; TEMP 97; O2SAT 95
[2016-07-29] MEDS: ACETAMINOPHEN/HYDROcodone 325 MG/5 MG TAB PO PRN ×2 (17:42→23:58)
[2016-07-29] MEDS: BETHANECHOL CHL 25 MG TAB PO SCH ×2 (17:42→21:38)
[2016-07-29 20:00] VITALS: BP 117/68; PULSE 68; RESP 18; TEMP 96.6; O2SAT 96
[2016-07-29] MEDS: DONEPEZIL HCL 5 MG TAB PO SCH (21:38)
[2016-07-29] MEDS: cefTRIAXone INJ 1,000 MG in SODIUM CHLORIDE 0.9% INJ 100 ML IV SCH (23:07)
[2016-07-30] VITALS: BP 120/75; PULSE 70; RESP 18; TEMP 96.9; O2SAT 96
[2016-07-30] MEDS: SODIUM CHLOR 0.9% 1000 ML INJ 1,000 ML IV SCH (02:32)
[2016-07-30 04:00] VITALS: BP 121/73; PULSE 75; RESP 18; TEMP 96.3; O2SAT 96
[2016-07-30] MEDS: BETHANECHOL CHL 25 MG TAB PO SCH ×2 (06:28→12:13)
[2016-07-30 06:30] LABS: POTASSIUM 3.7 MEQ/L (3.5-5.1)
[2016-07-30 06:34] LABS: BICARBONATE 26.6 MEQ/L (21.0-32.0)
[2016-07-30] MEDS: SODIUM CHLORIDE 0.9% FLUSH 10 ML FLUSH IV FLUSH SCH (08:09)
[2016-07-30] MEDS: MEMANTINE HCL 10 MG TAB PO SCH (08:09)
[2016-07-30] MEDS: TAMSULOSIN HCL 0.4 MG CAP PO SCH (08:09)
--- NOTE | 2016-07-30 09:13 | HHI.PR ---
Subjective Patient symptoms today Pt seen and examined. No events. Selby in and urine clear. Objective Vital Signs Vital Signs Date Time Temp Pulse Resp B/P Pulse Ox O2 Delivery O2 Flow Rate FiO2 07/30/16 04:00 96.3 75 18 121/73 96 07/30/16 00:58 18 07/30/16 00:00 96.9 70 18 120/75 96 07/29/16 20:00 96.6 68 18 117/68 96 07/29/16 15:50 97.0 77 20 116/70 95 07/29/16 12:00 98.1 88 20 124/88 95 Intake & Output 07/30/16 07/30/16 07:00 19:00 Intake Total 660 ml Output Total 1200 ml Balance -540 ml Intake Oral 660 ml Output Urine Total 1200 ml # Bowel Movements 1 Result Diagram: 07/28/16 0547 07/30/16 0530 Objective Remarks Abd:soft,nt,nd Selby with clear urine Medications and IVs Current Medications Medications (Trade) Dose Ordered Sig/Alisa Route Start Time Stop Time Status Last Admin Ceftriaxone Sodium 1000 mg/ Sodium Chloride 100 ml @ 200 mls/hr Q24H IV 07/28/16 23:00 07/29/16 23:07 (NS 1000 ml Inj) 1,000 ml @ 42 mls/hr [id number] IV 07/27/16 23:53 07/30/16 02:32 (NS Flush) 2 ml UNSCH PRN IV FLUSH 07/28/16 00:00 (NS Flush) 2 ml BID IV FLUSH 07/28/16 09:00 07/28/16 20:01 (Zofran Inj) 4 mg Q6H PRN IVP 07/28/16 00:00 (Dulcolax Supp) 10 mg DAILY PRN [place] 07/28/16 00:00 (Tylenol) 650 mg Q6H PRN PO 07/28/16 00:00 ([place] 5-325 Mg) 1 tab Q4H PRN PO 07/28/16 00:00 07/29/16 23:58 (Morphine Inj) 2 mg Q3H PRN IV 07/28/16 00:00 07/28/16 20:00 (Aricept) 10 mg HS PO 07/28/16 21:00 07/29/16 21:38 (Namenda) 10 mg BID PO 07/28/16 09:00 07/30/16 08:09 (Pyridium) 100 mg Q8H PRN PO 07/28/16 00:00 Patient Own Medication PT OWN MED: ADVAIR HFA O... DAILY INH 07/28/16 09:00 Hold (Robitussin Liq) 200 mg Q4H PRN PO 07/28/16 05:30 07/29/16 23:58 (Flomax) 0.4 mg BID PO 07/29/16 21:00 07/30/16 08:09 (Urecholine) 25 mg Q8HR PO 07/29/16 17:00 07/30/16 06:28 Assessment and Plan Assessment and Plan 75 y.o male with BPH and retention Double Flomax R/B sono Continue [place] F/U in office in one week for void trial; if fails will need TURP Matt Goldstein DO Jul 30, 2016 09:13
[2016-07-30] MEDS: guaiFENesin SOLUTION 200 MG/10 ML CUP PO PRN (09:16)
[2016-07-30] MEDS ORDERED: BETH25 PO (11:23)
[2016-07-30] MEDS ORDERED: TAMS5CAP PO (11:23)
--- NOTE | 2016-07-30 11:29 | HHI.DCPOC ---
Discharge Care Plan Diagnosis: (1) UTI (urinary tract infection) (2) Urinary retention (3) Dementia Goals to Promote Your Health * To prevent worsening of your condition and complications * To maintain your health at the optimal level Directions to Meet Your Goals Take your medications as prescribed Follow your dietary instruction Follow activity as directed Keep your appointments as scheduled Take your immunizations and boosters as scheduled If your symptoms worsen call your PCP, if no PCP go to Urgent Care Center or Emergency Room Smoking is Dangerous to Your Health. Avoid second hand smoke Call the 24-hour hour crisis hotline for domestic abuse at Tish Tran Jul 30, 2016 11:29
--- NOTE | 2016-07-30 11:44 | RADHPO ---
EXAM DATE/TIME: 07/30/2016 11:09 [place] COMPARISON: No previous studies available for comparison. INDICATIONS : Obstruction and evaluate prostate size. MEDICAL HISTORY : Dementtia. Lung cancer. Hypertension. Enlarged prostate. SURGICAL HISTORY : Tonsillectomy. Hernia repair. Right knee surgery. ENCOUNTER: Initial ACUITY: 1 day PAIN SCORE: 3/10 LOCATION: Bilateral flank MEASUREMENTS: RIGHT KIDNEY: 12.1 x 5.1 x 5.1 cm LEFT KIDNEY: 11.6 x 4.8 x 5.2 cm FINDINGS: RIGHT KIDNEY: Renal cortex is normal in thickness and echotexture. No hydronephrosis, stone, or mass. LEFT KIDNEY: Renal cortex is normal in thickness and echotexture. No hydronephrosis, stone, or mass. BLADDER: Bladder is decompressed by Selby catheter. Prostate is prominent measuring 6.1 x 6.3 x 3.8 cm. CONCLUSION: 1. Both kidneys are sonographically normal without hydronephrosis or nephrolithiasis. 2. Prominent prostate. Pascual Alba MD on July 30, 2016 at 11:41 Board Certified Radiologist. This report was verified electronically.
--- NOTE | 2016-07-30 11:55 | HHI.DS ---
cc: Marisela Reddy MD Discharge Summary Admission Date Jul 27, 2016 at 23:53 Discharge Date: Jul 30, 2016 Admitting Diagnosis UTI, failed outpatient therapy (1) Urinary retention ICD Code: R33.9 (2) Dementia ICD Code: F03.90 (3) UTI (urinary tract infection) ICD Code: N39.0 (4) Hyponatremia ICD Code: E87.1 Procedures None except for ordonez placement Brief History - From Admission This is a 75-year-old male with severe dementia who presented to [facility] ED with complaints of weakness and abdominal pain who was treated in the ED 3 days ago for UTI and urinary retention. Patient is unable to give accurate history and there is no family at the bedside, therefore the history is obtained from review of the medical record. Purportedly, patient began to complain of abdominal pain yesterday with some associated shortness of breath that improved after receiving an albuterol treatment. He also has been more weak in comparison to his baseline. As stated above, patient was seen in the ED 3 days ago, diagnosed with a urinary tract infection and urinary retention. A ordonez was placed and he was prescribed Bactrim and Pyridium. Patient's reports the patient had been urinating without any difficulty until 07/26/16 when he presented in urinary retention. It was recommended the patient keep the Ordonez catheter in at the time of his discharge however due to his dementia the patient's insisted it be removed. He has been unable to void since. Today in the ED, ordonez catheter was replaced. UA was highly suggestive of urinary tract infection with large blood, positive nitrites, trace leukocytes and 20-24 red blood cells. He is afebrile and his white count is within normal limits. He was also noted to have significant hyponatremia with a sodium level of 129. Creatinine function appears normal with a level of 0.88. BUN was slightly elevated at 20. CBC/BMP: 07/28/16 0547 07/30/16 0530 Significant Findings Laboratory Tests Test 07/27/16 07/28/16 07/30/16 21:55 05:47 05:30 Red Blood Count 4.39 MIL/MM3 4.11 MIL/MM3 (4.50-5.90) (4.50-5.90) Hemoglobin 12.9 GM/DL 12.0 GM/DL (13.0-17.0) (13.0-17.0) Mean Platelet Volume 6.8 FL 6.7 FL (7.0-11.0) (7.0-11.0) Monocytes (%) (Auto) 18.1 % 17.8 % (0.0-8.0) (0.0-8.0) Monocytes # (Auto) 1.7 TH/MM3 1.6 TH/MM3 (0-0.9) (0-0.9) Urine Color ORANGE (YELLW/STRAW) Urine Protein 30 mg/dL (NEG-TRACE) Urine Glucose (UA) 100 mg/dL (NEG) Urine Occult Blood LARGE (NEG) Urine Nitrite POS (NEG) Urine Leukocyte Esterase TRACE (NEG) Urine RBC 20-24 /hpf (0-3) Urine Bacteria RARE /hpf (NONE) Sodium Level 129 MEQ/L 135 MEQ/L (136-145) (136-145) Chloride Level 95 MEQ/L (98-107) Blood Urea Nitrogen 20 MG/DL (7-18) Estimat Glomerular Filtration 84 ML/MIN (>89) Rate Random Glucose 109 MG/DL (74-106) Calcium Level 8.1 MG/DL 7.7 MG/DL 7.8 MG/DL (8.5-10.1) (8.5-10.1) (8.5-10.1) Troponin I LESS THAN 0.02 NG/ML (0.02-0.05) Albumin 3.1 GM/DL 2.9 GM/DL (3.4-5.0) (3.4-5.0) Hematocrit 36.6 % (39.0-51.0) Neutrophils (%) (Auto) 70.4 % (16.0-70.0) Lymphocytes (%) (Auto) 8.0 % (9.0-44.0) Lymphocytes # (Auto) 0.7 TH/MM3 (1.0-4.8) Aspartate Amino Transf 12 U/L (15-37) (AST/SGOT) Total Protein 6.2 GM/DL (6.4-8.2) Creatinine 0.51 MG/DL (0.60-1.30) Imaging Last 48 hours Impressions Renal Ultrasound 07/30/16 1032 Signed Impressions: Service Date/Time: Saturday, July 30, 2016 11:09 - CONCLUSION: 1. Both kidneys are sonographically normal without hydronephrosis or nephrolithiasis. 2. Prominent prostate. Pascual Alba MD PE at Discharge GENERAL: This is a well-nourished, well-developed patient, in no apparent distress. Lying in hospital in restraints. at bedside. SKIN: Warm and dry. HEAD: Atraumatic. Normocephalic. CARDIOVASCULAR: Regular rate and rhythm without murmurs, gallops, or rubs. RESPIRATORY: Clear to auscultation. Breath sounds equal bilaterally. No wheezes , rales, or rhonchi. GASTROINTESTINAL: Abdomen soft, non-tender, nondistended. No hepato-splenomegaly , or palpable masses. No guarding. GENITOURINARY: Ordonez in place with clear yellow urine in the bag. MUSCULOSKELETAL: Extremities without clubbing, cyanosis, or edema. No joint tenderness, effusion, or edema noted. No calf tenderness. Positive for tenderness elicited to palpation over the right anterior lateral thigh. No evidence of infection or inflammation. Skin overlying this intact without any abnormalities. No signs of ecchymosis or hematoma. NEUROLOGICAL: Awake and alert. Patient has dementia and is not oriented to person place or time. He is able to move all 4 extremities. No focal neurologic deficits appreciated. Pt update on day of discharge Follow-up on patient with dementia, urinary retention and UTI. Patient sensorium appears to return to his baseline. No new issues overnight. Patient' s is at the bedside. Urine culture shows no growth in 48 hours. PT evaluated patient and recommended short-term physical therapy. Will also add home health care to assist with Ordonez management. Patient to undergo renal ultrasound and then may be discharged with Ordonez in place to follow-up with Dr. Goldstein in [address] Goldstein's instructions. Discussed with nursing staff, , patient and Dr. Goldstein. Hospital Course Patient with severe dementia admitted with UTI, failed outpatient treatment and urinary retention. Ordonez placed in the ED. She was started on IV ceftriaxone and Flomax 0.4 mg. Patient also noted to have some mild hyponatremia which was felt to be due to fluid overload from his urinary retention and this improved on his second inpatient day. Patient was continued on his home medications to treat his other comorbidities including Aricept for his dementia. On his first night in the hospital, patient became much more confused and pulled out the Ordonez. Urology consult was requested for traumatic ordonez removal. Patient was seen in consultation by Dr. Goldstein of Urology and a Odronez was replaced. Patient 's Flomax was increased to 0.4 mg twice a day and he was started on Bethancol. He also ordered a renal bladder ultrasound. Patient was cleared for discharge from urology standpoint with instructions to continue Ordonez catheter and follow up in 1 week's time in his office. Urine culture was negative x 48hrs. Case management was consulted to assist with discharge planning to include home health care PT and Ordonez management. Patient was discharged to home. Pt Condition on Discharge: Stable Discharge Disposition: Disch w/ Home Health Serv Discharge Time: > 30 minutes Discharge Instructions DIET: Follow Instructions for: Heart Healthy Diet Activities you can perform: Regular-No Restrictions Follow up Referrals: PCP Follow-up - 2-3 Days Urology - 1 Week with Matt Goldstein DO New Medications: Bethanechol (Urecholine) 25 Mg Tab 25 MG PO Q8HR Urinary retention #21 TAB Tamsulosin (Flomax) 0.4 Mg Cap 0.4 MG PO BID BPH #14 CAP Continued Medications: Albuterol 18 GM Inh (Ventolin Hfa 18 GM Inh) 90 Mcg/Act Aer 2 PUFF INH Q4-6H PRN SHORTNESS OF BREATH #1 Ref 0 INHALER Albuterol Neb (Albuterol Neb) 1.25 Mg/3 Ml Neb 1.25 MG NEB Q6HR NEB PRN SHORTNESS OF BREATH #50 Ref 0 NEBULE Amlodipine (Amlodipine) 5 Mg Tab 5 MG PO DAILY Blood Pressure Management #30 Ref 0 TAB Donepezil (Donepezil) 10 Mg Tab 10 MG PO HS Dementia #30 Ref 0 TAB Fluticasone-Salmeterol 12 GM Inh (Advair Hfa 12 GM Inh) 115-21 Mcg/Act Aer 2 PUFF INH DAILY #1 Ref 0 INHALER Memantine (Namenda) 10 Mg Tab 10 MG PO BID Alzheimer Disease #30 Ref 0 TAB Sulfamethoxazole-Trimethoprim (Bactrim DS) 800-160 Mg Tab 1 TAB PO BID Infection #20 Ref 0 TAB Discontinued Medications: Phenazopyridine (Pyridium) 100 Mg Tab 100 MG PO Q8H PRN DYSURIA #6 Ref 0 TAB Additional Information Written by Tish Tran PA-C acting as scribe for Dr. Mirza on 07/30/16 at 11:35. All or portions of this note were transcribed by scribe Tish Tran PA-C. I, Dr. Ovidio Mirza personally performed the history, physical exam, and medical decision making; and confirmed the accuracy of the information in the transcribed note. Authenticated by Dr. Ovidio Mirza on 07/30/16 at 15:00. Tish Tran Jul 30, 2016 11:55 Ovidio Mirza MD Jul 30, 2016 15:01
[2016-07-30] MEDS ORDERED: HYDR-3516 PO (12:07)
[2016-07-30] MEDS: ACETAMINOPHEN/HYDROcodone 325 MG/5 MG TAB PO PRN (12:13)
--- NOTE | 2016-07-30 12:31 | HHI.FF ---
Face to Face Verification Diagnosis: (1) Urinary retention (2) Dementia (3) UTI (urinary tract infection) Physical Therapy Order: Evaluate and Treat, Improve ambulation, Strength and gait training Home Health Nursing Order: Selby catheter maintenance I have seen patient Neel Garcia on 07/30/16. My clinical findings support the need for the requested home health care services because: Deconditioned w/ increased weakness Limited ability to care for self Impaired cognition/judgement High risk of falls I certify that my clinical findings support that this patient is homebound because: Impaired cognitive ability/safety Unsteady gait/balance Unsafe to leave home unassisted Tish Tran Jul 30, 2016 12:31 Ovidio Mirza MD Jul 30, 2016 12:35
[2016-08-19] MEDS ORDERED: PROS5TAB PO (12:28)
[2016-08-27] MEDS ORDERED: BETH25 PO (14:19)
[2016-08-28] MEDS ORDERED: TAMS5CAP PO (09:07)
[2016-10-02] MEDS ORDERED: MACR100C2 PO (16:42)
[2016-10-29] MEDS ORDERED: PROS5TAB PO (12:09)
[2016-10-29] MEDS ORDERED: BETH25 PO (12:09)
== END 2016-07-30 13:58 | disposition home health service (06) | DRG 690 ==
LOC: PHED 20:55 → PHEDA 23:53 → PHEDH 07-28 03:41 → PH3B 07-28 09:12
PROVIDERS: ADMIT Family Medicine; ATTEND Family Medicine
PROC: 0T9B70Z Drainage of Bladder with Drainage Device, Via Natural or Artificial Opening (ICD-10-PCS; principal; 2016-07-27)
PROC: 0T9B70Z Drainage of Bladder with Drainage Device, Via Natural or Artificial Opening (ICD-10-PCS; 2016-07-29)
DX: N39.0 Urinary tract infection, site not specified (principal); F03.90 Unspecified dementia, unspecified severity, without behavioral disturbance, psychotic disturbance, mood disturbance, and anxiety; E87.1 Hypo-osmolality and hyponatremia; J44.9 Chronic obstructive pulmonary disease, unspecified; N40.1 Benign prostatic hyperplasia with lower urinary tract symptoms; R33.9 Retention of urine, unspecified; I10 Essential (primary) hypertension; Z85.118 Personal history of other malignant neoplasm of bronchus and lung; Z78.1 Physical restraint status; Z87.891 Personal history of nicotine dependence
CPT/HCPCS: 51702; 71010; 76775; 80048; 80053; 80076; 81001; 83605; 84484; 85025; 85610; 85730; 87077; 87086; 87186; 93005; 94640; 94664; 96361; 96365; J0696; J2270; J7030; J7613

== ENCOUNTER 2016-08-23 06:30 | Day surgery (SDC) | payer OTHER ==
[2016-08-23] VITALS (8 sets, daily range): BP systolic 93–125; BP diastolic 53–70; PULSE 70–90; RESP 16–20; TEMP 97.7–98; O2SAT 91–98
[~2016-08-23] VITALS: Ht 170.2 cm; Wt 89.1 kg
[~2016-08-23 06:30] MED LIST changes: +ADVA115A INH; +ALBU1.25 NEB; +AMLO5TAB2 PO; -BACT800T5 PO; +BETH25 PO; +DONE10TA7 PO; +NAME10TA PO; -PHEN0.4T PO; +PROS5TAB PO; +TAMS5CAP PO; +VENTAER INH
[2016-08-23] MEDS ORDERED: SODIUM CHLOR 0.9% 1000 ML IV SCH (07:30)
[2016-08-23] MEDS ORDERED: fentaNYL CITRATE 250 MCG/5 ML AMP ONE (08:09)
[2016-08-23] MEDS ORDERED: MIDAZOLAM HCL 5 MG/5 ML VIAL ONE (08:09)
[2016-08-23] MEDS ORDERED: LIDOCAINE 1%/EPINEPHrine 1:100,000 SOLN 20 ML VIAL ONE (08:19)
--- NOTE | 2016-08-23 13:38 | RADRPT ---
EXAM DATE/TIME: 08/23/2016 08:42 [place] COMPARISON: No previous studies available for comparison. INDICATIONS : Right sacral mass. SEDATION TIME: 30 minutes BIOPSY SITE: Right MEDICATION(S): 1.) 1.5 mg midazolam (Versed) IV 2.) 75 mcg fentanyl (Sublimaze) IV DEVICE(S): 1.) 11 gauge Bone marrow biopsy needle MEDICAL HISTORY : Chronic obstructive pulmonary disease. Alzheimers. SURGICAL HISTORY : Right lobectomy. ENCOUNTER: Initial ACUITY: 1 day PAIN SCORE: 0/10 LOCATION: Right pelvis A total of two core specimen(s) were obtained and sent to the laboratory for pathologic evaluation. PROCEDURE: 1. CT guided bone deep biopsy. 2. Conscious sedation with continuous EKG and oximetry monitoring. 3. EKG and oximetry remained stable throughout the procedure. Prior to the procedure informed consent was obtained. Any appropriate prior imaging studies were rev iewed. Using automated exposure control and adjustment of the mA and/or kV according to patient size, radiat ion dose was kept as low as reasonably achievable to obtain optimal diagnostic quality images. The site was prepped in a sterile fashion. Full sterile technique was used, including cap, mask, oanh rile gloves and gown and a large sterile sheet. Hand hygiene and 2% chlorhexidine and/or betadine/al cohol prep was utilized per protocol for cutaneous antisepsis. The skin and subcutaneous tissues wer e infiltrated with local anesthetic solution. Under CT guidance guidewire was placed down to the PET positive lesion right sacrum and 2,18 gauge co res and 1,14 gauge core were obtained. Follow-up CT scan reveals no hemorrhage. The patient tolerated the procedure well and there were no complications. The patient was returned to the Radiology Outpatient Unit in stable condition. CONCLUSION: Uncomplicated CT guided biopsy of PET positive sacral lesion. Frank Cash MD FACR on August 23, 2016 at 13:35 Board Certified Radiologist. This report was verified electronically.
[2016-08-27] MEDS ORDERED: BETH25 PO (14:19)
[2016-08-28] MEDS ORDERED: TAMS5CAP PO (09:07)
[2016-10-02] MEDS ORDERED: MACR100C2 PO (16:42)
[2016-10-29] MEDS ORDERED: BETH25 PO (12:09)
[2016-10-29] MEDS ORDERED: PROS5TAB PO (12:09)
[2016-11-04] MEDS ORDERED: BETH25 PO (14:56)
== END 2016-08-23 11:20 | disposition home or self-care (01) ==
LOC: HRAD 06:30 → HRIP 06:49 → HRAD 11:20
PROVIDERS: ATTEND Internal Medicine Hematology & Oncology
DX: M99.84 Other biomechanical lesions of sacral region (principal); C34.91 Malignant neoplasm of unspecified part of right bronchus or lung; J44.9 Chronic obstructive pulmonary disease, unspecified; F02.80 Dementia in other diseases classified elsewhere, unspecified severity, without behavioral disturbance, psychotic disturbance, mood disturbance, and anxiety; G30.9 Alzheimer's disease, unspecified
CPT/HCPCS: 20225; 77012; 88305; 88333; 99152; 99153; C1830; J2250; J3010; J7030; 88307; 88311